=== PATIENT | female | born 1950 | race Caucasian/White ===

== ENCOUNTER 2016-10-16 23:33 | Emergency (ER) | payer OTHER ==
--- NOTE | 2016-10-17 00:22 | EDM.PDOC ---
ED HPI GENERAL MEDICAL PROBLEM - General Chief Complaint: Lower Extremity Injury/Pain Stated Complaint: AMBULANCE Time Seen by Provider: 10/16/16 23:38 - History of Present Illness INITIAL COMMENTS - FREE TEXT/NARRATIVE: HISTORY AND PHYSICAL: History of present illness: Patient 66-year-old female presents status post fall with acute left hip injury she states is strictly mechanical she denies chest pain shortness of breath had her neck pain or trauma chest or abdominal pain or trauma or other concern Review of systems: As per history of present illness and below otherwise all systems reviewed and negative. Past medical history: As per history of present illness and as reviewed below otherwise noncontributory. Surgical history: As per history of present illness and as reviewed below otherwise noncontributory. Social history: No reported history of drug or alcohol abuse. Family history: As per history of present illness and as reviewed below otherwise noncontributory. Physical exam: HEENT: Atraumatic, normocephalic, pupils reactive, negative for conjunctival pallor or scleral icterus, mucous membranes moist, throat clear, neck supple, nontender, trachea midline. Lungs: Clear to auscultation, breath sounds equal bilaterally, chest nontender. Heart: S1S2, regular, negative for clicks, rubs, or JVD. Abdomen: Soft, nondistended, nontender. Negative for masses or hepatosplenomegaly. Negative for costovertebral tenderness. Pelvis: Stable tenderness palpation of her left hip there is no crepitation she' s semiflexed slightly rotated on the stretcher neurovascular exams unremarkable she has good distal pulses. Genitourinary: Deferred. Rectal: Deferred. Extremities: Atraumatic, negative for cords or calf pain. Neurovascular unremarkable. Neuro: Awake, alert, oriented. Cranial nerves II through XII unremarkable. Cerebellum unremarkable. Motor and sensory unremarkable throughout. Exam nonfocal. Diagnostics: X-ray left hip/pelvis Therapeutics: Saline lock Impression: #1 observation status post fall #2 acute left hip injury Definitive disposition and diagnosis as appropriate pending reevaluation and review of above. left hip Pain Score (Numeric/FACES): 9 - Related Data Allergies Allergy/AdvReac Type Severity Reaction Status Date / Time No Known Allergies Allergy Verified 10/16/16 23:35 Home Meds: Home Meds Aspirin [Halfprin] 1 tab PO DAILY 12/11/13 [History] Calcium Carbonate [Calcium] 1 tab PO DAILY 12/11/13 [History] Enalapril/Hydrochlorothiazide [Enalapril-HCTZ 10-25 MG] 0 tab PO DAILY 12/11/13 [History] Glucosamine [Glucosamine Sulfate] 1 tab PO DAILY 12/11/13 [History] Multivitamin [Multi-Vitamin Daily] 1 tab PO DAILY 12/11/13 [History] Past Medical History - Past Health History Medical/Surgical History: Denies Medical/Surgical History Cardiovascular History: Reports: Hypertension 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: - Past Surgical History HEENT Surgical History: Reports: Tonsillectomy Social & Family History - Family History Family Medical History: Noncontributory - Tobacco Use Smoking Status *Q: Current Every Day Smoker Years of Tobacco use: 40 Packs/Tins Daily: 1 - Caffeine Use Caffeine Use: Reports: Coffee Caffeine Use Comment: 4 cups daily - Alcohol Use Days Per Week of Alcohol Use: 2 Number of Drinks Per Day: 2 Total Drinks Per Week: 4 - Recreational Drug Use Recreational Drug Use: No Drug Use in Last 12 Months: No Review of Systems - Review of Systems Review Of Systems: ROS reveals no pertinent complaints other than HPI. ED EXAM, GENERAL - Physical Exam Exam: See Below (See dictation) Course - Vital Signs Last Recorded V/S: Last Vital Signs Temp 36.6 C 10/16/16 23:37 Pulse 93 10/16/16 23:37 Resp 18 10/16/16 23:37 BP 124/60 10/16/16 23:37 Pulse Ox 97 10/16/16 23:37 - Orders/Labs/Meds Orders: Active Orders 24 hr Category Date Time Status EKG 12 Lead [EKG Documentation Completion] [RC] STAT Care 10/17/16 01:08 Active Hip Min 2V or 3V w Pelvis Lt [CR] Stat Exams 10/16/16 23:35 Ordered CBC WITH AUTO DIFF [HEME] Stat Lab 10/17/16 01:07 Ordered COMPREHENSIVE METABOLIC PN,CMP [CHEM] Stat Lab 10/17/16 01:07 Ordered INR,PT,PROTHROMBIN TIME [COAG] Stat Lab 10/17/16 01:07 Ordered Meds: Medications Discontinued Medications Generic Name Dose Route Start Last Admin Trade Name Freq PRN Reason Stop Dose Admin Hydromorphone HCl 1 mg 10/17/16 00:26 10/17/16 00:33 Dilaudid IVPUSH 10/17/16 00:27 1 mg ONETIME ONE Administration Departure - Departure Time of Disposition: 01:19 Disposition: DC/Tfer to Acute Hospital 02 Condition: Good Clinical Impression: Pelvic fracture - Discharge Information Forms: ED Department Discharge - My Orders Last 24 Hours: My Active Orders 10/16/16 23:35 Hip Min 2V or 3V w Pelvis Lt [CR] Stat 10/17/16 01:07 CBC WITH AUTO DIFF [HEME] Stat COMPREHENSIVE METABOLIC PN,CMP [CHEM] Stat INR,PT,PROTHROMBIN TIME [COAG] Stat 10/17/16 01:08 EKG 12 Lead [EKG Documentation Completion] [RC] STAT - Assessment/Plan Last 24 Hours: My Active Orders 10/16/16 23:35 Hip Min 2V or 3V w Pelvis Lt [CR] Stat 10/17/16 01:07 CBC WITH AUTO DIFF [HEME] Stat COMPREHENSIVE METABOLIC PN,CMP [CHEM] Stat INR,PT,PROTHROMBIN TIME [COAG] Stat 10/17/16 01:08 EKG 12 Lead [EKG Documentation Completion] [RC] STAT
[2016-10-17] MEDS ORDERED: HYDROmorphone 1 MG/ML Syringe IVPUSH ONE (00:26)
[2016-10-17 01:47] VITALS: BP 106/58
[2016-10-17 01:50] LABS: CHLORIDE,CL 93 mmol/L (98-110); SODIUM,NA 125 mmol/L (136-146)
--- NOTE | 2016-10-18 16:23 | CR ---
EXAM DATE: 10/16/16 PATIENT'S AGE: 66 Patient: TOMASA LASSITER Facility: [place], [place] Site . Site : 1950 Study: XRay Extremity Left Pelvis [id number] 1:28:55 AM Ordering Physician: Doctor Montague Final Report: Indication: Fall with left hip pain Technique: Frontal view pelvis Comparison: None Findings/impression: : There is superior dislocation of the left femur with a fracture through the left acetabulum. Remainder of the pelvic ring is intact. No femur fracture is identified. CT will be useful for further characterization of the acetabular fracture. Dictated by Shanta Batres MD @ Oct 17 2016 2:01AM (Electronic Signature) Report Signed by Proxy. YARELIS
--- NOTE | 2016-10-18 16:24 | CT ---
EXAM DATE: 10/16/16 PATIENT'S AGE: 66 Patient: TOMASA LASSITER Facility: [place], [place] Site . Site : 1950 Study: CT Pelvis [id number]/2/[id number] 1:44:43 AM Ordering Physician: Lopez Daniel Final Report: INDICATION: Fall, acetabular fracture TECHNIQUE: CT pelvis without contrast. COMPARISON: Pelvic radiograph from same date FINDINGS: There is a comminuted fracture of the posterior wall of the left acetabulum with superior and posterior dislocation of the femoral head. The anterior aspect of the femoral head is impacted into the posterior aspect of the acetabulum. There does appear to be cortical depression of the femoral head at this level concerning for a cortical fracture. Small amount of extraperitoneal pelvic hematoma in association with the acetabular fracture. Remainder of the pelvic ring is intact. Mild associated overlying soft tissue swelling. There is moderate distention of the urinary bladder. Calcified uterine fibroids are noted. Aortoiliac vascular calcifications identified. IMPRESSION: Comminuted fracture of the posterior wall of the left acetabulum with superior and posterior dislocation of the femoral head. Impaction of the femoral head into the posterior aspect of the acetabulum with likely mildly depressed cortical fracture of the anterior aspect of the femoral head. Small amount of extraperitoneal pelvic hematoma. Please note that all CT scans at this facility use dose modulation, iterative reconstruction, and/or weight-based dosing when appropriate to reduce radiation dose to as low as reasonably achievable. Dictated by Shanta Batres MD @ Oct 17 2016 2:15AM (Electronic Signature) Report Signed by Proxy. MTDD
== END 2016-10-17 01:51 ==
LOC: MW.ED 23:33
DX: S32.422A Displaced fracture of posterior wall of left acetabulum, initial encounter for closed fracture (principal); S73.005A Unspecified dislocation of left hip, initial encounter; I10 Essential (primary) hypertension; F17.210 Nicotine dependence, cigarettes, uncomplicated; Z79.82 Long term (current) use of aspirin; Z98.890 Other specified postprocedural states; Z79.899 Other long term (current) drug therapy; W19.XXXA Unspecified fall, initial encounter
CPT/HCPCS: 36415; 72170; 72192; 80053; 85025; 85610; 93005; 96374; 99285; J1170; 99283

== ENCOUNTER 2017-11-27 15:25 | Emergency (ER) | payer MEDICARE, OTHER ==
[2017-11-27] MEDS ORDERED: Sodium Chloride 0.9% 500 ML IV SCH (15:30)
--- NOTE | 2017-11-27 15:31 | EDM.PDOC ---
ED HPI GENERAL MEDICAL PROBLEM - General Stated Complaint: DIZZINESS DUE TO HEAT Time Seen by Provider: 11/27/17 15:31 Source of Information: Reports: Patient - History of Present Illness INITIAL COMMENTS - FREE TEXT/NARRATIVE: HISTORY AND PHYSICAL: History of present illness: [Patient went golfing today in the 104 heat, are 7 holes she was somewhat dizzy and weak. She presents for evaluation however is asymptomatic at this time no fever nausea vomiting chills sweats no chest pain shortness breath headache dizziness palpitation no bowel or urine symptoms Review of systems: As per history of present illness and below otherwise all systems reviewed and negative. Past medical history: As per history of present illness and as reviewed below otherwise noncontributory. Surgical history: As per history of present illness and as reviewed below otherwise noncontributory. Social history: No reported history of drug or alcohol abuse. Family history: As per history of present illness and as reviewed below otherwise noncontributory. Physical exam: HEENT: Atraumatic, normocephalic, pupils reactive, negative for conjunctival pallor or scleral icterus, mucous membranes moist, throat clear, neck supple, nontender, trachea midline. Lungs: Clear to auscultation, breath sounds equal bilaterally, chest nontender. Heart: S1S2, regular, negative for clicks, rubs, or JVD. Abdomen: Soft, nondistended, nontender. Negative for masses or hepatosplenomegaly. Negative for costovertebral tenderness. Pelvis: Stable nontender. Genitourinary: Deferred. Rectal: Deferred. Extremities: Atraumatic, negative for cords or calf pain. Neurovascular unremarkable. Neuro: Awake, alert, oriented. Cranial nerves II through XII unremarkable. Cerebellum unremarkable. Motor and sensory unremarkable throughout. Exam nonfocal. Diagnostics: [CBC CMP UA EKG Chest 1 view-patient refused ] Therapeutics: [ 500 mL bolus ] Impression: [Dizziness/weak-resolved Dehydration on antibiotics history of baseline Definitive disposition and diagnosis as appropriate pending reevaluation and review of above. 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: - Past Surgical History HEENT Surgical History: Reports: Tonsillectomy Social & Family History - Family History Family Medical History: Noncontributory - Caffeine Use Caffeine Use: Reports: Coffee Caffeine Use Comment: 4 cups daily ED ROS GENERAL - Review of Systems Review Of Systems: See Below ED EXAM, GENERAL - Physical Exam Exam: See Below Course - Vital Signs Last Recorded V/S: Last Vital Signs Temp 97.4 F 11/27/17 15:41 Pulse 85 11/27/17 15:41 Resp 16 11/27/17 15:41 BP 147/86 H 11/27/17 15:41 Pulse Ox 98 11/27/17 15:41 - Orders/Labs/Meds Orders: Active Orders 24 hr Category Date Time Status EKG Documentation Completion [RC] STAT Care 11/27/17 15:30 Active Chest 1V Frontal [CR] Stat Exams 11/27/17 15:30 Stop Req UA W/MICROSCOPIC [URIN] Stat Lab 11/27/17 16:33 Ordered Sodium Chloride 0.9% [Normal Saline] 500 ml Med 11/27/17 15:30 Active IV STAT Medication Orders Sodium Chloride (Normal Saline) 500 mls @ 999 mls/hr IV STAT SITA Last Admin: 11/27/17 15:51 Dose: 999 mls/hr Labs: Laboratory Tests 11/27/17 11/27/17 11/27/17 Range/Units 15:40 15:40 16:33 WBC 6.82 (4.0-11.0) K/uL RBC 4.39 (4.30-5.90) M/uL Hgb 13.5 (12.0-16.0) g/dL Hct 39.9 (36.0-46.0) % MCV 90.9 (80.0-98.0) fL MCH 30.8 (27.0-32.0) pg MCHC 33.8 (31.0-37.0) g/dL RDW Std Deviation 42.1 (28.0-62.0) fl RDW Coeff of Meena 13 (11.0-15.0) % Plt Count 383 (150-400) K/uL MPV 9.50 (7.40-12.00) fL Neut % (Auto) 55.6 (48.0-80.0) % Lymph % (Auto) 30.9 (16.0-40.0) % [facility] % (Auto) 11.3 (0.0-15.0) % Eos % (Auto) 1.8 (0.0-7.0) % Baso % (Auto) 0.4 (0.0-1.5) % Neut # (Auto) 3.8 (1.4-5.7) K/uL Lymph # (Auto) 2.1 (0.6-2.4) K/uL [facility] # (Auto) 0.8 (0.0-0.8) K/uL Eos # (Auto) 0.1 (0.0-0.7) K/uL Baso # (Auto) 0.0 (0.0-0.1) K/uL Nucleated RBC % 0.0 /100WBC Nucleated RBCs # 0 K/uL Sodium 135 L (136-145) mmol/L Potassium 3.7 (3.5-5.1) mmol/L Chloride 97 L (98-107) mmol/L Carbon Dioxide 25.7 (21.0-32.0) mmol/L BUN 20 H (7.0-18.0) mg/dL Creatinine 1.3 H (0.6-1.0) mg/dL Est Cr Clr Drug Dosing 35.69 mL/min Estimated GFR (MDRD) 41.1 ml/min Glucose 123 H (74-106) mg/dL Calcium 10.4 H (8.5-10.1) mg/dL Total Bilirubin 0.4 (0.2-1.0) mg/dL AST 21 (15-37) IU/L ALT 21 (14-63) IU/L Alkaline Phosphatase 69 (46-116) U/L Creatine Kinase 70 (26-308) U/L Troponin I < 0.050 (0.000-0.056) ng/mL Total Protein 8.1 (6.4-8.2) g/dL Albumin 4.0 (3.4-5.0) g/dL Globulin 4.1 H (2.0-3.5) g/dL Albumin/Globulin Ratio 1.0 L (1.3-2.8) Urine Color YELLOW Urine Appearance CLEAR Urine pH 6.0 (5.0-8.0) Ur Specific [place] 1.010 (1.001-1.035) Urine Protein NEGATIVE (NEGATIVE) mg/dL Urine Glucose (UA) NEGATIVE (NEGATIVE) mg/dL Urine Ketones NEGATIVE (NEGATIVE) mg/dL Urine Occult Blood NEGATIVE (NEGATIVE) Urine Nitrite NEGATIVE (NEGATIVE) Urine Bilirubin NEGATIVE (NEGATIVE) Urine Urobilinogen 0.2 (<2.0) EU/dL Ur Leukocyte Esterase TRACE (NEGATIVE) Urine RBC 0-1 (0-2/HPF) Urine WBC 0-2 (0-5/HPF) Ur Epithelial Cells FEW (NONE-FEW) Urine Bacteria RARE (NEGATIVE) Meds: Medications Generic Name Dose Route Start Last Admin Trade Name Freq PRN Reason Stop Dose Admin Sodium Chloride 500 mls @ 999 mls/hr 11/27/17 15:30 11/27/17 15:51 Normal Saline IV 999 mls/hr STAT SITA Administration Departure - Departure Time of Disposition: 17:00 Disposition: Home, Self-Care 01 Condition: Good Clinical Impression: Dehydration, Heat exhaustion - Discharge Information Referrals: Vikas Munson MD [Primary Care Provider] - Additional Instructions: Fluid hydration techniques as discussed Return home to her conditioning Follow-up with primary care as needed Return if symptoms persist or worsen or new concerning symptoms develop The following information is given to patients seen in the emergency department who are being discharged to home. This information is to outline your options for follow-up care. We provide all patients seen in our emergency department with a follow-up referral. The need for follow-up, as well as the timing and circumstances, are variable depending upon the specifics of your emergency department visit. If you don't have a primary care physician on staff, we will provide you with a referral. We always advise you to contact your personal physician following an emergency department visit to inform them of the circumstance of the visit and for follow-up with them and/or the need for any referrals to a consulting specialist. The emergency department will also refer you to a specialist when appropriate. This referral assures that you have the opportunity for follow-up care with a specialist. All of these measure are taken in an effort to provide you with optimal care, which includes your follow-up. Under all circumstances we always encourage you to contact your private physician who remains a resource for coordinating your care. When calling for follow-up care, please make the office aware that this follow-up is from your recent emergency room visit. If for any reason you are refused follow-up, please contact the [facility] emergency department at and asked to speak to the emergency department charge nurse. - My Orders Last 24 Hours: My Active Orders 11/27/17 15:30 EKG Documentation Completion [RC] STAT Chest 1V Frontal [CR] Stat Sodium Chloride 0.9% [Normal Saline] 500 ml IV STAT 11/27/17 16:33 UA W/MICROSCOPIC [URIN] Stat - Assessment/Plan Last 24 Hours: My Active Orders 11/27/17 15:30 EKG Documentation Completion [RC] STAT Chest 1V Frontal [CR] Stat Sodium Chloride 0.9% [Normal Saline] 500 ml IV STAT 11/27/17 16:33 UA W/MICROSCOPIC [URIN] Stat
[2017-11-27 16:19] LABS: CHLORIDE,CL 97 mmol/L (98-107); SODIUM,NA 135 mmol/L (136-145)
[2017-11-27 17:08] VITALS: BP 161/87
== END 2017-11-27 17:04 | disposition home or self-care (01) ==
LOC: MW.ED 15:25
DX: T67.5XXA Heat exhaustion, unspecified, initial encounter (principal); E86.0 Dehydration; I10 Essential (primary) hypertension; Z79.82 Long term (current) use of aspirin; X30.XXXA Exposure to excessive natural heat, initial encounter
CPT/HCPCS: 36415; 80053; 81001; 82550; 84484; 85025; 93005; 96360; 99285; J7040; 99283

== ENCOUNTER 2019-02-01 10:26 | Day surgery (SDC) | payer MEDICARE, OTHER ==
[~2019-02-01 10:26] MED LIST: Lactated Ringers 1,000 ML IV SCH; Sodium Chloride 0.9% 10 ML SDV IV PRN; Sodium Chloride 0.9% 10 ML Syringe FLUSH PRN; Sodium Chloride 0.9% 2.5 ML Syringe FLUSH PRN
--- NOTE | 2019-02-01 11:25 | PCM.PREANE ---
Preanesthetic Assessment - Anesthesia/Transfusion/Family Hx Anesthesia History: Prior Anesthesia Without Reaction Other Type of Anesthesia Reaction Comment: Denies any known problem with anesthesia, my Mom would get sick Family History of Anesthesia Reaction: No Transfusion History: No Prior Transfusion(s) - Review of Systems General: No Symptoms Pulmonary: No Symptoms Cardiovascular: No Symptoms Gastrointestinal: No Symptoms Neurological: No Symptoms Other: Reports: None - Physical Assessment Vital Signs: Last Vital Signs Temp 97.5 F 02/01/19 11:16 Pulse 58 L 02/01/19 11:16 Resp 16 02/01/19 11:16 BP 131/74 02/01/19 11:16 Pulse Ox 97 02/01/19 11:16 Height: 5 ft 3 in Weight: 53.524 kg ASA Class: 2 Mental Status: Alert & Oriented x3 Airway Class: Mallampati = 2 Dentition: Reports: Normal Dentition ROM/Head Extension: Full Lungs: Clear to Auscultation, Normal Respiratory Effort Cardiovascular: Regular Rate, Regular Rhythm - Allergies Allergies/Adverse Reactions: Allergies Allergy/AdvReac Type Severity Reaction Status Date / Time No Known Allergies Allergy Verified 01/29/19 10:20 - Blood Blood Available: No - Anesthesia Plan Pre-Op Medication Ordered: None - Acknowledgements Anesthesia Type Planned: General Anesthesia Pt an Appropriate Candidate for the Planned Anesthesia: Yes Alternatives and Risks of Anesthesia Discussed w Pt/Guardian: Yes Pt/Guardian Understands and Agrees with Anesthesia Plan: Yes Additional Comments: Bossman prob listt: htn PLAN: tiva PreAnesthesia Questionnaire - Past Health History Medical/Surgical History: Denies Medical/Surgical History Cardiovascular History: Reports: Hypertension Gastrointestinal History: Reports: Diverticulosis 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: Musculoskeletal History: Reports: Arthritis, Fracture, Osteoporosis Neurological History: Reports: Migraines, Vertigo Other Neuro History: no migraines recently - Infectious Disease History Infectious Disease History: Reports: Chicken Pox, Measles - Past Surgical History Head Surgeries/Procedures: Reports: None HEENT Surgical History: Reports: Tonsillectomy GI Surgical History: Reports: Colonoscopy Musculoskeletal Surgical History: Reports: ORIF Other Musculoskeletal Surgeries/Procedures:: ORIF left hip- has 2 plates - SUBSTANCE USE Smoking Status *Q: Former Smoker Days Per Week of Alcohol Use: 7 Number of Drinks Per Day: 2 Total Drinks Per Week: 14 Recreational Drug Use History: No - HOME MEDS Home Medications: Home Meds Aspirin [Halfprin] 1 tab PO DAILY 12/11/13 [History] Multivitamin [Multi-Vitamin Daily] 1 tab PO DAILY 12/11/13 [History] Losartan [Cozaar] 100 mg PO DAILY 11/27/17 [History] Calcium Carbonate/Vitamin D3 [Calcium 600 + Vit D 400 Softgl] 1 cap PO BID 01/29 [History] Denosumab [Prolia] 60 mg IM ASDIRECTED 01/29/19 [History] - CURRENT (IN HOUSE) MEDS Current Meds: Current Medications Lactated Ringer's (Ringers, Lactated) 1,000 mls @ 125 mls/hr IV ASDIRECTED SITA Sodium Chloride (Saline Flush) 10 ml FLUSH ASDIRECTED PRN PRN Reason: Keep Vein Open Sodium Chloride (Saline Flush) 2.5 ml FLUSH ASDIRECTED PRN PRN Reason: Keep Vein Open Sodium Chloride (Saline Flush) 10 ml FLUSH ASDIRECTED PRN PRN Reason: Keep Vein Open Sodium Chloride (Saline Flush) 2.5 ml FLUSH ASDIRECTED PRN PRN Reason: Keep Vein Open Sodium Chloride (Normal Saline) 10 ml IV ASDIRECTED PRN PRN Reason: IV Use
[2019-02-01] MEDS ORDERED: Propofol 200 MG/20 ML SDV ONE (13:00)
[2019-02-01] MEDS ORDERED: Ketamine 500 mg/10 ML MDV ONE (13:00)
[2019-02-01] MEDS ORDERED: Lidocaine 2% 5 ML SDV ONE (13:00)
--- NOTE | 2019-02-01 13:37 | PCM.OPNOTE ---
- General Post-Op/Procedure Note Date of Surgery/Procedure: 02/01/19 Operative Procedure(s): Colonoscopy Findings: Sigmoid colon polyp, rectal polyp Pre Op Diagnosis: Family history of colon cancer Post-Op Diagnosis: Sigmoid colon polyp, rectal polyp Anesthesia Technique: [facility] [place] Surgeon: Francoise Cotton Condition: Good
--- NOTE | 2019-02-01 14:30 | PCM.POSTAN ---
POST ANESTHESIA ASSESSMENT - MENTAL STATUS Mental Status: Alert, Oriented - VITAL SIGNS Vital Signs: Last Vital Signs Temp 97.5 F 02/01/19 11:16 Pulse 60 02/01/19 13:54 Resp 10 L 02/01/19 13:54 BP 154/80 H 02/01/19 13:54 Pulse Ox 100 02/01/19 13:54 - RESPIRATORY Respiratory Status: Respiratory Rate WNL, Airway Patent, O2 Saturation Stable - CARDIOVASCULAR CV Status: Pulse Rate WNL, Blood Pressure Stable - GASTROINTESTINAL GI Status: No Symptoms - POST OP HYDRATION Hydration Status: Adequate & Stable
--- NOTE | 2019-02-01 14:31 | PCM48HPAN ---
Post Anesthesia Note - EVALUATION WITHIN 48HRS OF ANESTHETIC Vital Signs in Normal Range: Yes Patient Participated in Evaluation: Yes Respiratory Function Stable: Yes Airway Patent: Yes Cardiovascular Function Stable: Yes Hydration Status Stable: Yes Pain Control Satisfactory: Yes Nausea and Vomiting Control Satisfactory: Yes Mental Status Recovered: Yes Vital Signs: Last Vital Signs Temp 97.5 F 02/01/19 11:16 Pulse 60 02/01/19 13:54 Resp 10 L 02/01/19 13:54 BP 154/80 H 02/01/19 13:54 Pulse Ox 100 02/01/19 13:54
[2019-02-01 14:59] VITALS: BP 156/71; PULSE 63
--- NOTE | 2019-02-01 16:57 | OR ---
SURGEON: TRAVIS MEDEIROS MD DATE OF PROCEDURE: 02/01/2019 PREOPERATIVE DIAGNOSIS: Family history of colon cancer. POSTOPERATIVE DIAGNOSES: 1. Diverticulosis. 2. Sigmoid colon polyp. 3. Rectal polyp. PROCEDURE PERFORMED: Screening colonoscopy. ANESTHESIA: MAC. INSTRUMENT USED: Olympus colonoscope. EXTENT OF EXAM: To the cecum. PREPARATION: Good. LIMITATIONS: None. INDICATIONS FOR EXAMINATION: The patient is a 68-year-old female whose mother was diagnosed with colon cancer. She is here for a 5-year followup colonoscopy. I explained the procedure, expected perioperative course, and risks including bleeding, infection, or damage to surrounding structures including perforation. The patient verbalized understanding and wishes to proceed. PROCEDURE IN DETAIL: The patient was brought to the endoscopy suite and placed in the left lateral decubitus position. A time-out was completed verifying the patient's name, age, date of , allergies, and procedure to be performed. Monitored anesthesia care was induced and continuous oxygen was provided via nasal cannula throughout the procedure. After adequate sedation was achieved, a digital rectal exam was performed. This exam was within normal limits. A well lubricated colonoscope was inserted in the rectum and advanced under direct visualization to the level of the cecum. The cecum was identified by both visual and anatomic landmarks. A photograph was taken of the cecal cap; however, I was unable to retroflex the scope within the cecum. Scope was then fully withdrawn while examining the color, texture, anatomy, and integrity of the mucosa from the cecum to the anal canal. The patient was found to have diverticulosis in the sigmoid colon. She also had 1 sessile polyp in the sigmoid colon which was removed in piecemeal fashion using a cold biopsy forceps. At the very proximal rectum, she had another sessile polyp which was removed in similar fashion. The scope was then retroflexed within the rectum to allow visualization of the anal canal opening. It appeared normal and a photograph was taken. Scope was then straightened out and fully withdrawn. The cecum to anus time was 12 minutes. The patient tolerated the procedure well and was transferred to the PACU in stable condition. ENDOSCOPIC DIAGNOSES: 1. Diverticulosis. 2. Sigmoid colon polyp. 3. Rectal polyp. RECOMMENDATIONS: Follow up in clinic in 2 weeks. MINOR LANDIN /[id number]
== END 2019-02-01 14:22 | disposition home or self-care (01) ==
LOC: MW.SDS 10:26
PROVIDERS: ATTEND Surgery
DX: Z12.11 Encounter for screening for malignant neoplasm of colon (principal); D12.5 Benign neoplasm of sigmoid colon; K62.1 Rectal polyp; K57.30 Diverticulosis of large intestine without perforation or abscess without bleeding; I10 Essential (primary) hypertension; F17.210 Nicotine dependence, cigarettes, uncomplicated; M16.12 Unilateral primary osteoarthritis, left hip; Z80.0 Family history of malignant neoplasm of digestive organs; Z79.82 Long term (current) use of aspirin; Z79.899 Other long term (current) drug therapy
CPT/HCPCS: 45380; J2001; J2704

== ENCOUNTER 2024-02-07 07:57 | Day surgery (SDC) | payer MEDICARE, OTHER ==
[~2024-02-07 07:57] MED LIST changes: -Sodium Chloride 0.9% 10 ML SDV IV PRN; +Sodium Chloride 0.9% 20 ML SDV IV PRN
[2024-02-07] MEDS: Lactated Ringers 1,000 ML IV SCH (08:25)
[2024-02-07] MEDS ORDERED: Glycopyrrolate 0.2 MG/ML SDV ONE (09:41)
[2024-02-07 10:05] VITALS: BP 132/72; PULSE 57
[2024-02-07] MEDS ORDERED: propofoL 50 ML ONE (10:22)
[2024-02-07] MEDS ORDERED: Lidocaine 2% 5 ML SDV ONE (10:22)
== END 2024-02-07 10:25 | disposition home or self-care (01) ==
LOC: MW.SDS 07:57
PROVIDERS: ATTEND Surgery
DX: Z12.11 Encounter for screening for malignant neoplasm of colon (principal); K57.30 Diverticulosis of large intestine without perforation or abscess without bleeding; I10 Essential (primary) hypertension; F17.210 Nicotine dependence, cigarettes, uncomplicated; Z79.82 Long term (current) use of aspirin; Z79.899 Other long term (current) drug therapy; Z86.0100 Personal history of colon polyps, unspecified
CPT/HCPCS: G0105; J2704; J7120; J3490